=== PATIENT | male | born 1965 | race Caucasian/White ===

== ENCOUNTER 2017-09-16 08:44 | Outpatient (CLI) | payer OTHER | END 2017-09-16 08:45 | disposition home or self-care (01) | LOC: BICRAD 08:44 | PROVIDERS: ATTEND Family Medicine | DX: R06.02 Shortness of breath (principal); Z87.891 Personal history of nicotine dependence | CPT/HCPCS: 36415; 71046; 80053; 80061; 84439; 84443; 85025 ==